=== PATIENT | female | born 1945 | race Caucasian/White ===

== ENCOUNTER 2018-03-22 11:11 | Observation (INO) | payer MEDICARE, OTHER ==
[~2018-03-22] VITALS: Ht 160 cm; Wt 67.6 kg
[2018-03-22 11:14] VITALS: BP 62/37
[2018-03-22] MEDS ORDERED: PLAVIX 75 MG TA75 M1 PO (11:27)
[2018-03-22] MEDS ORDERED: LISINOPRIL10 MG PO (11:28)
[2018-03-22] MEDS ORDERED: NEURONTIN 300300 M1 PO (11:28)
[2018-03-22] MEDS ORDERED: LIPITOR40 MG PO (11:29)
[2018-03-22] MEDS ORDERED: EPITOL200 MG PO (11:29)
[2018-03-22] MEDS ORDERED: SERTRALINE HCL50 MG PO (11:29)
[2018-03-22] MEDS ORDERED: HYDROCHLOROTH12.5 M1 PO (11:29)
[2018-03-22] MEDS ORDERED: STIOLTO RESPIMAT4 GM INH (11:30)
[2018-03-22] MEDS ORDERED: PROAIR HFA8.5 GM INH (11:31)
[2018-03-22 11:37] LABS: ABSOLUTE BASOPHILS 0.1 thou/uL (0.0-0.2); ABSOLUTE EOSINOPHILS 0.1 thou/uL (0.0-0.7); ABSOLUTE LYMPHOCYTES 1.7 thou/uL (0.8-5.3); ABSOLUTE MONOCYTES 1.2 thou/uL (0.0-1.2); ABSOLUTE NEUTROPHILS 11.6 thou/uL (1.6-8.1); BASOPHILS 0.6 %; EOSINOPHILS 0.3 %; HEMATOCRIT 32.6 % (37.0-47.0); HEMOGLOBIN 10.7 gm/dL (12.0-15.0); LYMPHOCYTES 11.4 %; MCH 29.8 pg (26.0-34.0); MCHC 32.7 g/dL (28.0-37.0); MCV 91.2 fL (80.0-100.0); MONOCYTES 8.1 %; NUCLEATED RBCS 0 /100WBC; PLATELET COUNT* 405 thou/uL (150-400); POLYS 79.6 %; RBC 3.57 mil/uL (4.20-5.00); RDW-CV 14.3 % (10.5-14.5); WBC 14.5 thou/uL (4.0-11.0)
[2018-03-22 11:45] LABS: CALCIUM 8.4 mg/dL (8.5-10.1); CREATININE 1.1 mg/dL (0.6-1.3); POTASSIUM 3.3 mmol/L (3.5-5.1)
[2018-03-22 11:50] LABS: ALBUMIN 3.2 g/dL (3.4-5.0); MAGNESIUM 1.7 mg/dL (1.8-2.4); TOTAL BILIRUBIN 0.2 mg/dL (<0.1-1.0); TOTAL PROTEIN 7.3 g/dL (6.4-8.2)
[2018-03-22 12:49] LABS: URINE BILIRUBIN NEGATIVE (Negative); URINE BLOOD NEGATIVE (Negative); URINE CLARITY CLEAR; URINE COLOR YELLOW; URINE GLUCOSE-RANDOM NEGATIVE (Negative); URINE KETONES NEGATIVE (Negative); URINE LEUKOCYTES-REFLEX NEGATIVE (Negative); URINE NITRITE-REFLEX NEGATIVE (Negative); URINE PROTEIN 1+ (Negative); URINE UROBILINOGEN 0.2 E.U./dl (0.2-1.0)
[2018-03-22 15:43] LABS: APTT 23.6 Seconds (25.0-31.3); PROTIME 10.1 Seconds (9.20-11.50)
[2018-03-22 17:05] VITALS: BP 166/78
[2018-03-22 17:15] VITALS: BP 143/57
[2018-03-22] MEDS ORDERED: SINEMET 25-1001 EAC1 PO (17:53)
--- NOTE | 2018-03-22 18:06 | EKG ---
[place] [address] ELECTROCARDIOGRAM REPORT Name: EMA DAVIS Room: [address] ADM IN .R.#: [id number] Admission: 03/22/18 Attend Phys: Patel Mistry MD Discharge: Date of : 41 Report #: [id number] THIS REPORT FOR: //name// [facility] ED Test Date: 2018-03-22 Test Time: 11:20:20 Pat Name: EMA DAVIS Department: Room: Gender: F Cowlman: SAEID : 1945 Requested By: Anila Ryan Order Number: [id number] MD: Jluis Mistry Measurements Intervals [place] Rate: 69 P: 49 FL: 268 QRS: 65 QRSD: 106 T: 61 QT: 436 QTc: 467 Interpretive Statements Sinus rhythm Prolonged [place] interval Abnormal inferior Q waves Borderline repol abnrm, anterolateral leads Baseline wander in lead(s) V1,V2,V3,V4,V5 No previous ECG available for comparison Electronically Signed On 03-22-2018 18:05:53 CDT by Jluis Mistry [email or web address] <ELECTRONICALLY SIGNED> By: Jluis Mistry MD, FACC 03/22/18 1805 1120 1120 Jluis Mistry MD, [facility] /EPI
[2018-03-22 19:45] VITALS: BP 125/52
[2018-03-23] VITALS (7 sets, daily range): BP systolic 108–158; BP diastolic 38–59
[2018-03-23 05:19] LABS: CREATININE 0.8 mg/dL (0.6-1.3); MAGNESIUM 1.7 mg/dL (1.8-2.4); POTASSIUM 3.9 mmol/L (3.5-5.1)
[2018-03-23 14:12] LABS: HEMATOCRIT 29.8 % (37.0-47.0); HEMOGLOBIN 9.8 gm/dL (12.0-15.0); MCH 29.9 pg (26.0-34.0); MCHC 32.8 g/dL (28.0-37.0); MCV 91.3 fL (80.0-100.0); MPV 7.3 fl. (7.2-11.1); RBC 3.26 mil/uL (4.20-5.00); RDW-CV 14.3 % (10.5-14.5); WBC 14.2 thou/uL (4.0-11.0)
[2018-03-23 14:20] LABS: CALCIUM 8.2 mg/dL (8.5-10.1); CREATININE 0.9 mg/dL (0.6-1.3); POTASSIUM 3.7 mmol/L (3.5-5.1)
[2018-03-23 14:25] LABS: MAGNESIUM 1.7 mg/dL (1.8-2.4); TOTAL BILIRUBIN 0.2 mg/dL (<0.1-1.0)
--- NOTE | 2018-03-23 15:13 | 2DMMODE ---
[place] [address] 2 D/M-MODE ECHOCARDIOGRAM Name: EMA DAVIS WILMER Room: [address] MEsteban#: [id number] Admission: 03/22/18 Attend Phys: Patel Mistry, Discharge: Date of : 41 Date of Service: 03/23/18 1513 Report #: [id number] THIS REPORT FOR: //name// APPROVED REPORT Study performed: 03/23/2018 11:17:58 EXAM: Comprehensive 2D, Doppler, and color-flow Echocardiogram Patient Location: In-Patient Room #: 221 Status: routine BSA: 1.70 HR: 71 bpm BP: 112/45 mmHg Rhythm: NSR Other Information Study Quality: Good Indications Arrhythmia 2D Dimensions LVEF(%): 77.93 (>50%) IVSd: 10.31 (7-11mm) LVOT Diam: 18.82 (18-24mm) LVDd: 33.74 mm PWd: 9.30 (7-11mm) Ascending Ao: 31.79 (22-36mm) LVDs: 18.39 (25-40mm) Aortic Root: 30.19 mm Wade's LVEF: 77.93 % Volumes Left Atrial Volume (Systole) LA ESV Index: 23.20 mL/m2 Aortic Valve AoV Peak Shaquille.: 1.45 m/s AO Peak Gr.: 8.46 mmHg LVOT Max P.02 mmHg AO Mean Gr.: 4.78 mmHg LVOT Mean P.28 mmHg LVOT Max V: 1.32 m/s AO V2 VTI: 29.17 cm LVOT Mean V: 0.82 m/s NONA (VTI): 2.91 cm2 LVOT V1 VTI: 30.55 cm Mitral Valve E/A Ratio: 1.08 [place] [address] 2 D/M-MODE ECHOCARDIOGRAM Name: EMA DAVIS [facility] Room: [address] M.R.#: [id number] Admission: 03/22/18 Attend Phys: Patel Mistry, Discharge: Date of : 41 Date of Service: 03/23/18 1513 Report #: [id number] MV Decel. Time: 184.40 ms MV E Max Shaquille.: 1.09 m/s MV PHT: 53.48 ms MVA (PHT): 4.11 cm2 TDI E/Lateral E': 9.91 E/Medial E': 10.90 Medial E' Shaquille.: 0.10 m/s Lateral E' Shaquille.: 0.11 m/s Pulmonary Valve PV Peak Shaquille.: 1.00 m/s PV Peak Gr.: 4.02 mmHg Tricuspid Valve RAP Estimate: 5.00 mmHg TR Peak Gr.: 21.57 mmHg RVSP: 26.57 mmHg PA Pressure: 26.57 mmHg Left Ventricle The left ventricle is normal size. There is normal LV segmental wall motion. There is normal left ventricular wall thickness. Left ventricular systolic function is normal. The left ventricular ejection fraction is within the normal range. LVEF is 60-65%. The left ventricular diastolic function is normal. Right Ventricle The right ventricle is normal size. The right ventricular systolic function is normal. Atria The left atrium size is normal. The right atrium size is normal. Aortic Valve Mild aortic valve sclerosis. No aortic regurgitation is present. There is no aortic valvular stenosis. Mitral Valve The mitral valve is normal in structure. Mild mitral regurgitation. No evidence of mitral valve stenosis. Tricuspid Valve The tricuspid valve is normal in structure. Mild tricuspid regurgitation. No pulmonary hypertension[place] [address] 2 D/M-MODE ECHOCARDIOGRAM Name: EMA DAVIS [facility] Room: [address] M.R.#: [id number] Admission: 03/22/18 Attend Phys: Patel Mistry, Discharge: Date of : 41 Date of Service: 03/23/18 1513 Report #: [id number] The pulmonary valve is normal in structure. There is no pulmonic valvular regurgitation. Great Vessels The aortic root is normal in size. IVC is normal in size and collapses with >50% inspiration Pericardium There is no pericardial effusion. <Conclusion> The left ventricle is normal size. There is normal left ventricular wall thickness. Left ventricular systolic function is normal. The left ventricular ejection fraction is within the normal range. LVEF is 60-65%. The right ventricle is normal size. The left atrium size is normal. Mild aortic valve sclerosis. No aortic regurgitation is present. There is no aortic valvular stenosis. The mitral valve is normal in structure. Mild mitral regurgitation. The tricuspid valve is normal in structure. IVC is normal in size and collapses with >50% inspiration There is no pericardial effusion. There is normal LV segmental wall motion. <ELECTRONICALLY SIGNED> By: Pablo Gomes MD, FACC 03/23/18 1513 1513 1513 Pablo Gomes MD, FACC /INF
--- NOTE | 2018-03-24 12:17 | CON ---
[address] [address] CONSULTATION Name: EMA DAVIS WILMER Room: [address] Giovany Izaguirre#: [id number] Admission: 03/22/18 Attend Phys: Patel Mistry MD Discharge: 03/23/18 Date of : 41 Report #: [id number] THIS REPORT FOR: //name// CC: Patel Tam DATE OF SERVICE: 03/23/2018 HISTORY OF PRESENT ILLNESS: This is a 72-year-old female patient who was evaluated by me for 2 episodes of passing out. She indicates she was in the toilet and she passed out. She did not hit her head or any portion of her body as I understand, but she may have had confusion after the spell. When she came in, looks like her blood pressure was 62/37. Her blood pressure continued to be low. She gives a history that in December, she had a stroke. She was in [place]. They did the workup. She had presented with right-sided numbness. Apparently, the workup was unremarkable. They put the patient on aspirin, statin and readjusted her antihypertensive. She did not check her blood pressure and she does not know whether the blood pressure intermittently has become worse. REVIEW OF SYSTEMS: Indicate that about a year ago, she had an episode where she had some pain on the left side of the face. She went to a neurologist and looks like they put her on gabapentin and Tegretol. I do not have any of that history. She has taken that around that time, she also fell and hit her head. According to her that was a mechanical fall. She lost the taste and everything started tasting sugary, but then she became better. That feeling has come back, but that is going on for a few weeks. REVIEW OF SYSTEMS: I carried out 14-point review of system. She is not complaining of any new eye, ENT, respiratory, , musculoskeletal, constitutional, dermatological, hematological, psychiatric, throat, allergic symptom associated with present symptomatology except as described above. PAST MEDICAL HISTORY: Positive for stroke, but I do not have any of his records. FAMILY HISTORY: Negative for any early age stroke. SOCIAL HISTORY: She smokes. PHYSICAL EXAMINATION: Indicates she is alert, responsive, able to follow simple and complex command. Her speech, concentration, fund of knowledge and memory is at her baseline. Cranial nerve examination 2-12 looks unremarkable. She has symmetrical strength, sensation, reflexes and tone in all 4 extremities. There is no cerebellar sign. There is no carotid bruit. There is no papilledema. She has no thyroid mass. Her hearing and vision is adequate[place] [address] CONSULTATION Name: EMA DAVIS WILMER Room: [address] Giovany M.RMarvel#: [id number] Admission: 03/22/18 Attend Phys: Patel Mistry MD Discharge: 03/23/18 Date of : 41 Report #: [id number] cerebellar sign. She is reasonably well-developed individual. Her cardiac examination is unremarkable. Her pulses are palpable. She has no edema, cyanosis or jaundice. No respiratory difficulty or rhonchi was noticed on either side. Her blood pressure has come up, it is 158/59, and respiration is 18, pulse is 74, temperature is 97.8. LABORATORY DATA: For some reason, her white count was 14.5 and her sodium was 132, calcium was 8, and magnesium was 1.7. She did have an MRI, which is basically unremarkable. IMPRESSION: It is unlikely that there is any neurological etiology for the patient's symptoms. It looks like she has multiple metabolic abnormalities, which need to be addressed. She appears to be hypothyroid, hypocalcemic, hyponatremic, hypomagnesemic and when she came in, her blood pressure was very low. Therefore, I will suggest workup and management of her systemic and cardiac conditions, which I will defer to you. Just to make sure she is not having any spell and because she has it multiple times, I will do an MRA and EEG, but I do not expect to find anything there. I will suggest continue to workup and manage the systemic including cardiac etiology for the patient's symptoms. RECOMMENDATION: I suspect the patient's symptoms were non-neurological and we will suggest further workup and management of those etiologies, especially as summarized above. I will do a couple of other tests to exclude any neurological etiology, but do not suspect any. I will defer the further evaluation and management of non-neurological issues to the hospitalist or any other party plan sales consultant they want to consult. <ELECTRONICALLY SIGNED> By: Connor Vidal MD 03/24/18 1217 1315 1426Connor Vidal MD /nt
--- NOTE | 2018-03-24 12:17 | EEG ---
[address] [address] EEG STUDY REPORT Name: EMA DAVIS Room: [address] M.RMarvel#: [id number] Admission: 03/22/18 Attend Phys: Patel Mistry MD Discharge: 03/23/18 Date of : 41 Report #: [id number] THIS REPORT FOR: //name// CC: Patel Campbell Yonatan DATE OF SERVICE: 03/23/2018 This patient is being evaluated for an episode of syncope. EEG was done to evaluate the patient further. Background activity in this patient's EEG is about 9-10 Hz and 30 microvolts. It is a symmetrical activity. Photic stimulation was unremarkable. The patient went to sleep that is associated with bilaterally symmetrical sleep spindle and vertex sharp waves. Throughout the record, no active epileptiform activity was noted. IMPRESSION: This patient's electroencephalogram is within normal limit. Thank you very much for this referral. <ELECTRONICALLY SIGNED> By: Connor Vidal MD 03/24/18 1217 1835 1842Penedina Vidal MD /nt
== END 2018-03-23 18:34 | disposition home or self-care (01) ==
LOC: M.ERS 11:11 → M.2W 14:43 → M.TBA-ER 14:43 → M.2W 14:43
PROVIDERS: Personal Emergency Response Attendant; Psychiatry & Neurology Neuromuscular Medicine; ADMIT Internal Medicine
DX: I95.1 Orthostatic hypotension (principal); R19.7 Diarrhea, unspecified; E86.9 Volume depletion, unspecified; E87.1 Hypo-osmolality and hyponatremia; E87.6 Hypokalemia; I10 Essential (primary) hypertension; E78.5 Hyperlipidemia, unspecified; J44.9 Chronic obstructive pulmonary disease, unspecified; E03.9 Hypothyroidism, unspecified; F17.210 Nicotine dependence, cigarettes, uncomplicated; Z86.73 Personal history of transient ischemic attack (TIA), and cerebral infarction without residual deficits

== ENCOUNTER 2018-03-27 17:33 | Emergency (ER) | payer MEDICARE, BC ==
[~2018-03-27] VITALS: Ht 160 cm; Wt 64.9 kg
[~2018-03-27 17:33] MED LIST: EPITOL200 MG PO; HYDROCHLOROTH12.5 M1 PO; LIPITOR40 MG PO; LISINOPRIL10 MG PO; NEURONTIN 300300 M1 PO; PLAVIX 75 MG TA75 M1 PO; PROAIR HFA8.5 GM INH; SERTRALINE HCL50 MG PO; SINEMET 25-1001 EAC1 PO; STIOLTO RESPIMAT4 GM INH
[2018-03-27 18:24] LABS: ABSOLUTE BASOPHILS 0.1 thou/uL (0.0-0.2); ABSOLUTE LYMPHOCYTES 1.5 thou/uL (0.8-5.3); ABSOLUTE MONOCYTES 1.2 thou/uL (0.0-1.2); ABSOLUTE NEUTROPHILS 10.9 thou/uL (1.6-8.1); BASOPHILS 0.7 %; EOSINOPHILS 0.3 %; HEMATOCRIT 30.2 % (37.0-47.0); HEMOGLOBIN 9.9 gm/dL (12.0-15.0); MCH 29.3 pg (26.0-34.0); MCHC 32.8 g/dL (28.0-37.0); MCV 89.3 fL (80.0-100.0); MONOCYTES 9.1 %; MPV 7.1 fl. (7.2-11.1); NUCLEATED RBCS 0 /100WBC; PLATELET COUNT* 399 thou/uL (150-400); POLYS 78.9 %; RBC 3.38 mil/uL (4.20-5.00); RDW-CV 14.3 % (10.5-14.5); WBC 13.8 thou/uL (4.0-11.0)
[2018-03-27 18:27] LABS: CALCIUM 8.8 mg/dL (8.5-10.1); CREATININE 0.8 mg/dL (0.6-1.3); POTASSIUM 3.5 mmol/L (3.5-5.1)
[2018-03-27 18:31] LABS: ALBUMIN 3.2 g/dL (3.4-5.0); MAGNESIUM 1.4 mg/dL (1.8-2.4); TOTAL BILIRUBIN 0.3 mg/dL (<0.1-1.0); TOTAL PROTEIN 7.5 g/dL (6.4-8.2)
[2018-03-27 19:38] LABS: URINE BILIRUBIN NEGATIVE (Negative); URINE BLOOD TRACE (Negative); URINE CLARITY CLEAR; URINE COLOR YELLOW; URINE GLUCOSE-RANDOM NEGATIVE (Negative); URINE KETONES TRACE (Negative); URINE LEUKOCYTES-REFLEX NEGATIVE (Negative); URINE NITRITE-REFLEX NEGATIVE (Negative); URINE PROTEIN NEGATIVE (Negative); URINE SPECIFIC GRAVITY <= 1.005 (1.005-1.030); URINE UROBILINOGEN 0.2 E.U./dl (0.2-1.0)
[2018-03-27 19:56] LABS: CALCIUM 8.1 mg/dL (8.5-10.1); CREATININE 0.8 mg/dL (0.6-1.3); POTASSIUM 3.3 mmol/L (3.5-5.1)
[2018-03-27] MEDS ORDERED: ALBUTEROL2.5 MG/3 M INH (19:56)
[2018-03-27] MEDS ORDERED: PREDNISONE 20 M20 M1 PO (19:56)
[2018-03-27] MEDS ORDERED: ZPAK PO (19:56)
[2018-03-27 20:10] VITALS: BP 132/56
--- NOTE | 2018-03-28 17:17 | EKG ---
[place] [address] ELECTROCARDIOGRAM REPORT Name: EMA DAVIS Room: [facility]#: [id number] Admission: 03/27/18 Attend Phys: Discharge: 03/27/18 Date of : 41 Report #: [id number] THIS REPORT FOR: //name// [facility] ED Test Date: 2018-03-27 Test Time: 17:44:10 Pat Name: EMA DAVIS Department: Room: Gender: F Director Money: Keila MOORE : 1945 Requested By: Anila Ryan Order Number: [id number] Katie MD: Jluis Mistry Measurements Intervals [place] Rate: 96 P: 81 NH: 225 QRS: 77 QRSD: 98 T: 61 QT: 348 QTc: 440 Interpretive Statements Sinus rhythm Prolonged [place] interval Compared to ECG 03/22/2018 11:20:20 Inferior Q waves no longer present Q waves no longer present Electronically Signed On 03-28-2018 17:17:21 CDT by Jluis Mistry [email or web address] <ELECTRONICALLY SIGNED> By: Jluis Mistry MD, [facility] 03/28/18 1717 1744 174 Jluis Mistry MD, [facility] /EPI
== END 2018-03-27 20:11 | disposition home or self-care (01) ==
LOC: M.ERS 17:33
PROVIDERS: Family Medicine; Personal Emergency Response Attendant
DX: J44.1 Chronic obstructive pulmonary disease with (acute) exacerbation (principal); E87.1 Hypo-osmolality and hyponatremia; I10 Essential (primary) hypertension; F17.210 Nicotine dependence, cigarettes, uncomplicated; Z86.73 Personal history of transient ischemic attack (TIA), and cerebral infarction without residual deficits

== ENCOUNTER 2020-08-10 12:40 | Emergency (ER) | payer MEDICARE, BC ==
[~2020-08-10] VITALS: Ht 160 cm; Wt 69.0 kg
[~2020-08-10 12:40] MED LIST changes: +ALBUTEROL2.5 MG/3 M INH; +PREDNISONE 20 M20 M1 PO; +ZPAK PO
[2020-08-10 13:13] LABS: ABSOLUTE BASOPHILS 0.1 thou/uL (0.0-0.2); ABSOLUTE LYMPHOCYTES 0.9 thou/uL (0.8-5.3); ABSOLUTE MONOCYTES 1.2 thou/uL (0.0-1.2); ABSOLUTE NEUTROPHILS 4.2 thou/uL (1.6-8.1); BASOPHILS 1.1 %; EOSINOPHILS 0.1 %; HEMATOCRIT 32.3 % (37.0-47.0); HEMOGLOBIN 10.9 gm/dL (12.0-15.0); LYMPHOCYTES 14.1 %; MCH 31.2 pg (26.0-34.0); MCHC 33.7 g/dL (28.0-37.0); MCV 92.6 fL (80.0-100.0); MONOCYTES 18.4 %; MPV 6.9 fl. (7.2-11.1); NUCLEATED RBCS 0 /100WBC; PLATELET COUNT* 283 thou/uL (150-400); POLYS 66.3 %; RBC 3.48 mil/uL (4.20-5.00); RDW-CV 13.9 % (10.5-14.5); WBC 6.4 thou/uL (4.0-11.0)
[2020-08-10 13:23] LABS: CREATININE 0.9 mg/dL (0.6-1.3); POTASSIUM 3.9 mmol/L (3.5-5.1)
[2020-08-10 13:28] LABS: ALBUMIN 3.3 g/dL (3.4-5.0); TOTAL BILIRUBIN 0.3 mg/dL (<0.1-1.0); TOTAL PROTEIN 7.5 g/dL (6.4-8.2)
[2020-08-10 13:29] LABS: URINE BILIRUBIN NEGATIVE (Negative); URINE BLOOD 1+ (Negative); URINE CLARITY CLEAR; URINE COLOR YELLOW; URINE GLUCOSE-RANDOM NEGATIVE (Negative); URINE KETONES NEGATIVE (Negative); URINE LEUKOCYTES-REFLEX TRACE (Negative); URINE PROTEIN NEGATIVE (Negative); URINE SPECIFIC GRAVITY 1.015 (1.005-1.030); URINE UROBILINOGEN 0.2 E.U./dl (0.2-1.0)
[2020-08-10 13:30] LABS: URINE NITRITE-REFLEX POSITIVE (Negative)
[2020-08-10 13:41] LABS: SQUAMOUS >10 Many /LPF (0-3)
[2020-08-10 13:42] LABS: BACTERIA-REFLEX >30 Many /HPF (None Seen); CASTS None Seen /LPF (None Seen); CRYSTALS None Seen /LPF (None Seen); MUCUS 0-3 Light strn/LPF (None Seen); URINE RBC 3-10 Few /HPF (0-2); URINE WBC-REFLEX 6-15 Few /HPF (0-5)
[2020-08-10] MEDS ORDERED: PROAIR HFA8.5 GM INH ×2 (14:15→14:23)
[2020-08-10] MEDS ORDERED: APAP W/CODEINE1 TA2 PO (14:15)
[2020-08-10] MEDS ORDERED: AUGMENTIN 875-1 EACH PO ×2 (14:15→14:23)
[2020-08-10] MEDS ORDERED: PREDNISONE 20 M20 MG PO (14:15)
[2020-08-10] MEDS ORDERED: ONDANSETRON HCL4 M2 PO ×2 (14:15→14:23)
[2020-08-10 14:36] VITALS: BP 124/74
--- NOTE | 2020-08-11 15:10 | EKG ---
[place] [address] ELECTROCARDIOGRAM REPORT Name: IANCarmineEMA CRESPO WILMER Room: [facility]#: [id number] Admission: 08/10/20 Attend Phys: Discharge: 08/10/20 Date of : 41 Date of Service: 08/10/20 1312 Report #: [id number] THIS REPORT FOR: //name// [facility] ED Test Date: 2020-08-10 Test Time: 13:12:41 Pat Name: EMA DAVIS Department: Room: Gender: Vp Data: ROBSON : 1945 Requested By: Juana Bucio Order Number: [id number] : Pablo Gomes Measurements Intervals [place] Rate: 75 P: 70 WA: 222 QRS: 74 QRSD: 98 T: 74 QT: 403 QTc: 451 Interpretive Statements Sinus rhythm Prolonged [place] interval Compared to ECG 03/27/2018 17:44:10 No significant changes Electronically Signed On 08-11-2020 15:09:48 PENCIL INSPECTOR by Pablo Gomes [email or web address] <ELECTRONICALLY SIGNED> By: Pablo Gomes MD, [facility] 08/11/20 1509 1312 131 Pablo Gomes MD, [facility] /EPI
== END 2020-08-10 14:45 | disposition home or self-care (01) ==
LOC: M.ERS 12:40
PROVIDERS: Physician Assistant
DX: U07.1 COVID-19 (principal); N39.0 Urinary tract infection, site not specified; I10 Essential (primary) hypertension; J44.9 Chronic obstructive pulmonary disease, unspecified; F17.210 Nicotine dependence, cigarettes, uncomplicated; Z86.73 Personal history of transient ischemic attack (TIA), and cerebral infarction without residual deficits; Z90.49 Acquired absence of other specified parts of digestive tract; Z90.710 Acquired absence of both cervix and uterus

== ENCOUNTER 2020-08-11 02:27 | Inpatient (IN) | payer MEDICARE, BC ==
[~2020-08-11] VITALS: Ht 160 cm; Wt 73.0 kg
[~2020-08-11 02:27] MED LIST changes: +APAP W/CODEINE1 TA2 PO; +AUGMENTIN 875-1 EACH PO; +ONDANSETRON HCL4 M2 PO; +PREDNISONE 20 M20 MG PO
[2020-08-11 02:38] VITALS: BP 129/48
[2020-08-11 03:32] LABS: ABSOLUTE BASOPHILS 0.1 thou/uL (0.0-0.2); ABSOLUTE MONOCYTES 1.2 thou/uL (0.0-1.2); ABSOLUTE NEUTROPHILS 5.9 thou/uL (1.6-8.1); HEMATOCRIT 32.1 % (37.0-47.0); HEMOGLOBIN 10.8 gm/dL (12.0-15.0); MCH 31.6 pg (26.0-34.0); MCHC 33.7 g/dL (28.0-37.0); MCV 93.5 fL (80.0-100.0); MONOCYTES 13.2 %; MPV 8.4 fl. (7.2-11.1); NUCLEATED RBCS 0 /100WBC; PLATELET COUNT* 256 thou/uL (150-400); POLYS 63.8 %; RBC 3.43 mil/uL (4.20-5.00); RDW-CV 13.7 % (10.5-14.5); WBC 9.3 thou/uL (4.0-11.0)
[2020-08-11 03:34] LABS: BE -2.4 mmol/L (-2 to +3); PCO2 37.1 mmHg (35.0-45.0); PO2 71.3 mmHg (75.0-100.0); pH 7.392 (7.340-7.450)
[2020-08-11 03:43] LABS: CALCIUM 7.8 mg/dL (8.5-10.1); CREATININE 1.1 mg/dL (0.6-1.3); POTASSIUM 3.7 mmol/L (3.5-5.1)
[2020-08-11 03:47] LABS: ALBUMIN 3.2 g/dL (3.4-5.0); MAGNESIUM 1.8 mg/dL (1.8-2.4); TOTAL BILIRUBIN 0.3 mg/dL (<0.1-1.0); TOTAL PROTEIN 7.1 g/dL (6.4-8.2)
[2020-08-11 08:45] VITALS: BP 128/76
[2020-08-11 12:45] VITALS: BP 114/39
--- NOTE | 2020-08-11 15:12 | EKG ---
[place] [address] ELECTROCARDIOGRAM REPORT Name: SUSANEMA WILMER Room: [place] [address] ADM IN ..#: [id number] Admission: 08/11/20 Attend Phys: Ranjeet Oquendo Discharge: Date of : 41 Date of Service: 08/11/20 0237 Report #: [id number] THIS REPORT FOR: //name// [facility] ED Test Date: 2020-08-11 Test Time: 02:37:28 Pat Name: EMA DAVIS Department: Room: [place] [address] Gender: F Communications Tower Climber: [place] : 1945 Requested By: Anila Ryan Order Number: [id number] Katie MD: Pablo Gomes Measurements Intervals [place] Rate: 67 P: 102 NE: 238 QRS: 70 QRSD: 100 T: 78 QT: 413 QTc: 436 Interpretive Statements Sinus rhythm Prolonged [place] interval RSR' in V1 or V2, probably normal variant Compared to ECG 08/10/2020 13:12:41 RSR' in V1 or V2 now present Electronically Signed On 08-11-2020 15:12:38 ROLLING MILL OPERATOR by Pablo Gomes [email or web address] <ELECTRONICALLY SIGNED> By: Pablo Gomes MD, FACC 08/11/20 1512 0237 0237 Pablo Gomes MD, FACC /EPI
[2020-08-11 16:55] VITALS: BP 136/53
[2020-08-11 17:10] VITALS: BP 114/52
[2020-08-11 20:45] VITALS: BP 110/56; BP 139/77
[2020-08-12] VITALS (8 sets, daily range): BP systolic 108–165; BP diastolic 47–85
[2020-08-12 07:05] LABS: ABSOLUTE LYMPHOCYTES 2.1 thou/uL (0.8-5.3); ABSOLUTE MONOCYTES 0.6 thou/uL (0.0-1.2); ABSOLUTE NEUTROPHILS 3.4 thou/uL (1.6-8.1); BASOPHILS 0.6 %; EOSINOPHILS 0.2 %; HEMATOCRIT 30.9 % (37.0-47.0); HEMOGLOBIN 10.3 gm/dL (12.0-15.0); MCH 31.2 pg (26.0-34.0); MCHC 33.2 g/dL (28.0-37.0); MCV 93.8 fL (80.0-100.0); MONOCYTES 9.6 %; MPV 7.7 fl. (7.2-11.1); NUCLEATED RBCS 0 /100WBC; PLATELET COUNT* 251 thou/uL (150-400); POLYS 55.6 %; RDW-CV 13.9 % (10.5-14.5); WBC 6.2 thou/uL (4.0-11.0)
[2020-08-12 07:31] LABS: CALCIUM 8.1 mg/dL (8.5-10.1); CREATININE 0.9 mg/dL (0.6-1.3); POTASSIUM 3.5 mmol/L (3.5-5.1)
[2020-08-12 10:33] LABS: ALBUMIN 2.9 g/dL (3.4-5.0); DIRECT BILIRUBIN 0.1 mg/dL (<0.1-0.3); TOTAL BILIRUBIN 0.1 mg/dL (<0.1-1.0); TOTAL PROTEIN 6.8 g/dL (6.4-8.2)
[2020-08-13 00:54] VITALS: BP 124/55
[2020-08-13 05:00] VITALS: BP 120/53
[2020-08-13 06:59] LABS: ABSOLUTE LYMPHOCYTES 1.9 thou/uL (0.8-5.3); ABSOLUTE MONOCYTES 0.6 thou/uL (0.0-1.2); ABSOLUTE NEUTROPHILS 3.2 thou/uL (1.6-8.1); BASOPHILS 0.4 %; EOSINOPHILS 0.1 %; HEMATOCRIT 30.1 % (37.0-47.0); HEMOGLOBIN 10.2 gm/dL (12.0-15.0); LYMPHOCYTES 32.9 %; MCH 31.5 pg (26.0-34.0); MCHC 33.9 g/dL (28.0-37.0); MCV 92.8 fL (80.0-100.0); MONOCYTES 9.7 %; MPV 8.2 fl. (7.2-11.1); NUCLEATED RBCS 0 /100WBC; PLATELET COUNT* 251 thou/uL (150-400); POLYS 56.9 %; RBC 3.24 mil/uL (4.20-5.00); WBC 5.7 thou/uL (4.0-11.0)
[2020-08-13 07:21] LABS: CALCIUM 7.7 mg/dL (8.5-10.1); CREATININE 0.7 mg/dL (0.6-1.3); POTASSIUM 3.1 mmol/L (3.5-5.1); TOTAL BILIRUBIN 0.1 mg/dL (<0.1-1.0); TOTAL PROTEIN 7.2 g/dL (6.4-8.2)
[2020-08-13 08:00] VITALS: BP 139/76
[2020-08-13] MEDS ORDERED: DEXAMETHASONE1 MG PO (11:56)
[2020-08-13] MEDS ORDERED: DOXYCYCLINE 10100 MG PO (11:56)
[2020-08-13] MEDS ORDERED: PROTONIX40 M2 PO (11:56)
[2020-08-13 12:26] VITALS: BP 139/76
== END 2020-08-13 13:15 | disposition home or self-care (01) | DRG 177 ==
LOC: M.ERS 02:27 → M.ORTHSURG 04:31 → M.TBA-ER 04:31 → M.ORTHSURG 17:11
PROVIDERS: Internal Medicine; Personal Emergency Response Attendant; ADMIT Internal Medicine; ATTEND Internal Medicine
DX: U07.1 COVID-19 (principal); J12.89 Other viral pneumonia; K85.90 Acute pancreatitis without necrosis or infection, unspecified; E87.1 Hypo-osmolality and hyponatremia; R65.10 Systemic inflammatory response syndrome (SIRS) of non-infectious origin without acute organ dysfunction; J44.0 Chronic obstructive pulmonary disease with (acute) lower respiratory infection; J96.10 Chronic respiratory failure, unspecified whether with hypoxia or hypercapnia; I10 Essential (primary) hypertension; D64.9 Anemia, unspecified; Z86.73 Personal history of transient ischemic attack (TIA), and cerebral infarction without residual deficits; Z90.710 Acquired absence of both cervix and uterus; Z90.49 Acquired absence of other specified parts of digestive tract; Z79.899 Other long term (current) drug therapy; Z79.01 Long term (current) use of anticoagulants; Z87.891 Personal history of nicotine dependence

== ENCOUNTER 2020-08-20 10:53 | Emergency (ER) | payer MEDICARE, BC ==
[~2020-08-20] VITALS: Ht 162.6 cm; Wt 66.7 kg
[~2020-08-20 10:53] MED LIST changes: +DEXAMETHASONE1 MG PO; +DOXYCYCLINE 10100 MG PO; +PROTONIX40 M2 PO
[2020-08-20 11:37] LABS: HEMATOCRIT 33.8 % (37.0-47.0); HEMOGLOBIN 11.4 gm/dL (12.0-15.0); MCH 30.7 pg (26.0-34.0); MCHC 33.8 g/dL (28.0-37.0); MCV 90.9 fL (80.0-100.0); MPV 7.1 fl. (7.2-11.1); RBC 3.71 mil/uL (4.20-5.00); RDW-CV 13.9 % (10.5-14.5); WBC 8.9 thou/uL (4.0-11.0)
[2020-08-20 11:44] LABS: CALCIUM 8.1 mg/dL (8.5-10.1); POTASSIUM 3.7 mmol/L (3.5-5.1)
[2020-08-20 11:49] LABS: ALBUMIN 2.9 g/dL (3.4-5.0); TOTAL BILIRUBIN 0.3 mg/dL (<0.1-1.0); TOTAL PROTEIN 7.1 g/dL (6.4-8.2)
[2020-08-20] MEDS ORDERED: NORCO 5-325 TA1 EAC2 PO (13:47)
[2020-08-20] MEDS ORDERED: KEFLEX500 M1 PO (13:47)
[2020-08-20 14:06] VITALS: BP 133/62
--- NOTE | 2020-08-20 16:37 | EKG ---
[place] [address] ELECTROCARDIOGRAM REPORT Name: IANCarmineEMA CRESPO WILMER Room: [facility]#: [id number] Admission: 08/20/20 Attend Phys: Discharge: 08/20/20 Date of : 41 Date of Service: 08/20/20 1145 Report #: [id number] THIS REPORT FOR: //name// [facility] ED Test Date: 2020-08-20 Test Time: 11:45:35 Pat Name: EMA DAVIS Department: Room: Gender: F Charge Master Specialist: RAMBO : 1945 Requested By: Fred Scott Order Number: [id number] MD: Hayes Vital Measurements Intervals [place] Rate: 81 P: 50 MO: 211 QRS: 64 QRSD: 108 T: 79 QT: 401 QTc: 466 Interpretive Statements Sinus rhythm artifact noted Nonspecific repol abnormality, lateral leads Baseline wander in lead(s) V2,V4 Compared to ECG 08/11/2020 02:37: First degree AV block no longer present Electronically Signed On 08-20-2020 16:37:46 AIRCRAFT MAINTENANCE TECHNICIAN by Hayes Vital [email or web address] <ELECTRONICALLY SIGNED> By: Hayes Vital MD, [facility] 08/20/20 1637 1145 1145 Hayes Vital MD, [facility] /EPI
== END 2020-08-20 14:07 | disposition home or self-care (01) ==
LOC: M.ERS 10:53
PROVIDERS: Emergency Medicine Emergency Medical Services
DX: I80.8 Phlebitis and thrombophlebitis of other sites (principal); M79.632 Pain in left forearm; J44.9 Chronic obstructive pulmonary disease, unspecified; I10 Essential (primary) hypertension; F17.210 Nicotine dependence, cigarettes, uncomplicated; Z90.710 Acquired absence of both cervix and uterus; Z90.49 Acquired absence of other specified parts of digestive tract; Z86.73 Personal history of transient ischemic attack (TIA), and cerebral infarction without residual deficits

== ENCOUNTER 2021-03-26 20:16 | Inpatient (IN) | payer MEDICARE, BC ==
[~2021-03-26] VITALS: Ht 162.6 cm; Wt 68.0 kg
[~2021-03-26 20:16] MED LIST changes: +KEFLEX500 M1 PO; +NORCO 5-325 TA1 EAC2 PO
[2021-03-26 20:20] VITALS: BP 102/42
[2021-03-26 21:45] LABS: CALCIUM 8.9 mg/dL (8.5-10.1); CREATININE 1.3 mg/dL (0.6-1.3); POTASSIUM 3.5 mmol/L (3.5-5.1)
[2021-03-26 21:49] LABS: ALBUMIN 3.7 g/dL (3.4-5.0); MAGNESIUM 1.8 mg/dL (1.8-2.4); TOTAL BILIRUBIN 0.5 mg/dL (<0.1-1.0); TOTAL PROTEIN 8.1 g/dL (6.4-8.2)
[2021-03-26 22:10] LABS: HEMATOCRIT 42.2 % (37.0-47.0); HEMOGLOBIN 13.7 gm/dL (12.0-15.0); MCH 32.4 pg (26.0-34.0); MCHC 32.5 g/dL (28.0-37.0); MCV 99.5 fL (80.0-100.0); MPV 7.4 fl. (7.2-11.1); NUCLEATED RBCS 0 /100WBC; PLATELET COUNT* 375 thou/uL (150-400); RBC 4.24 mil/uL (4.20-5.00); RDW-CV 14.5 % (10.5-14.5); WBC 21.3 thou/uL (4.0-11.0)
[2021-03-26 22:42] LABS: ABSOLUTE LYMPHOCYTES 2.8 thou/uL (0.8-5.3); ABSOLUTE MONOCYTES 1.1 thou/uL (0.0-1.2); ABSOLUTE NEUTROPHILS 17.5 thou/uL (1.6-8.1); PLATELET ESTIMATE ADEQUATE
[2021-03-26] MEDS ORDERED: NEURONTIN 300M300 M2 PO (23:20)
[2021-03-26] MEDS ORDERED: AMITRIPTYLINE H10 M1 PO (23:24)
[2021-03-26] MEDS ORDERED: AMLODIPINE BESY10 MG PO (23:25)
[2021-03-26] MEDS ORDERED: BIOTIN1 M1 PO (23:26)
[2021-03-26] MEDS ORDERED: ZYRTEC10 M5 PO (23:28)
[2021-03-26] MEDS ORDERED: VITAMIN D3125 MC2 PO (23:28)
[2021-03-26] MEDS ORDERED: SLOW FE142 MG PO (23:32)
[2021-03-26] MEDS ORDERED: LEVO-T50 MCG PO (23:33)
[2021-03-26] MEDS ORDERED: MIRAPEX0.5 MG PO (23:34)
[2021-03-26] MEDS ORDERED: SODIUM CHLORIDE1 G2 PO (23:36)
--- NOTE | 2021-03-27 03:59 | NUR ---
PT INCONTINENT OF STOOL, LIQUID; PT WOKE CONFUSED; ASKED WHERE SHE WAS STATED "WHERE IS MY MOM" PT TEARFUL APOLOGIZING; PT PERICARE PROVIDED AND ASSISTED TO HOSPITAL BED' BED ALARM ON; CALL LIGHT WITHIN REACH; CLOSE TO THE NURSES STATION
[2021-03-27 04:00] VITALS: BP 113/51
--- NOTE | 2021-03-27 05:01 | NUR ---
PT WOKE DISTRESSED, BED ALRM GOING OFF; PT ATTEMPTING TO GET OUT OF BED; ASSISTED TO THE BATHROOM, PT UNSTEADY GAIT; IV PULLED OUT PER PT; PT TEARFUL ASKING FOR HER MOTHER AND BROTHER; NURSE REASSURED AND REDIRECTED PLACED BACK IN BED; CALL LIGHT WITHIN REACH, BED ALARM IN PLACE; DOOR REMAINS OPEN TO PTS ROOM TO KEEP SAFE, NEXT TO THE NURSES STATION
--- NOTE | 2021-03-27 06:49 | NUR ---
P T DAUGHTER CALLED RECEIVED UPDATE ASHOK [phone]; HARMAN SMITH [phone]
[2021-03-27 07:45] VITALS: BP 107/46
[2021-03-27 12:30] VITALS: BP 98/54
--- NOTE | 2021-03-27 15:10 | NUR ---
cm spk with pt and her granddtr, at bedside. pt lives with her dtr. pt has no dmes. pt is typically active and independent with cares. pt has no dmes. pt stated she was d/c from [facility] a day or two ago and was set up with that was supposed to start today. pt doesnt recall who was set up. cm contact [facility], for obvious reason, and was told pt was not on srvc with them. cm to cont to follow.
--- NOTE | 2021-03-27 15:13 | EKG ---
[place] [address] ELECTROCARDIOGRAM REPORT Name: EMA DAVIS Room: [place] [address] ADM IN .R.#: [id number] Admission: 03/26/21 Attend Phys: Álvaro Madsen, Discharge: Date of : 41 Date of Service: 03/26/212035 Report #: [id number] THIS REPORT FOR: //name// [facility] ED Test Date: 2021-03-26 Test Time: 20:36:59 Pat Name: EMA DAVIS Department: Room: [place] [address] Gender: F Key Operator: [place] : 1945 Requested By: Álvaro Madsen Order Number: [id number] Reading MD: Pablo Gomes Measurements Intervals [place] Rate: 77 P: 74 IA: 186 QRS: 64 QRSD: 97 T: 65 QT: 390 QTc: 442 Interpretive Statements Sinus rhythm Nondiagnostic inferior Q waves Minimal ST elevation, anterior leads Baseline wander in lead(s) V5 Compared to ECG 08/20/2020 11:45:35 Nondiagnostic inferior Q waves persist Minor nonspecific ST-T alterations persist Electronically Signed On 03-27-2021 15:13:08 CDT by Pablo Gomes [email or web address] <ELECTRONICALLY SIGNED> By: Pablo Gomes MD, [facility] 03/27/21 1513 35 35 Pablo Gomes MD, [facility] /EPI
--- NOTE | 2021-03-27 15:13 | EKG ---
[place] [address] ELECTROCARDIOGRAM REPORT Name: IANCarmineEMA CRESPO WILMER Room: [place] [address] ADM IN .R.#: [id number] Admission: 03/26/21 Attend Phys: Álvaro Madsen, Discharge: Date of : 41 Date of Service: 03/26/212036 Report #: [id number] THIS REPORT FOR: //name// [facility] ED Test Date: 2021-03-26 Test Time: 20:37:56 Pat Name: EMA DAVIS Department: Room: [place] [address] Gender: F Phlebotomy Coordinator: [place] : 1945 Requested By: Álvaro Madsen Order Number: [id number] Reading MD: Pablo Gomes Measurements Intervals [place] Rate: 77 P: 77 MA: 184 QRS: 56 QRSD: 101 T: 49 QT: 395 QTc: 448 Interpretive Statements Sinus rhythm Nondiagnostic inferior Q waves Minimal ST elevation, anterior leads Compared to ECG 03/26/2021 20:36:59 No significant changes Electronically Signed On 03-27-2021 15:13:31 CDT by Pablo Gomes [email or web address] <ELECTRONICALLY SIGNED> By: Pablo Gomes MD, [facility] 03/27/21 1513 36 36 Pablo Gomes MD, [facility] /EPI
[2021-03-27 17:00] VITALS: BP 98/54
--- NOTE | 2021-03-27 18:00 | NUR ---
ADMIT TO 210. ALERT AND AWARE, CONFUSION NOTED. ON ISOLATION FOR C-DIFF. STOOL SENT DOWN TO LAB EVENING OF 03-26-21. NS INFUSING LEFT AC AT 100MLS/HR. NO C/O PAIN. LUNGS DIMINISHED. HEART TONES REGULAR. +BS X 4 QUADS. PEDAL PULSES PRESENT. NO EDEMA NOTED. RESTING WITH EYES CLOSED. NO C/O. WILL CONTINUE TO MONITOR.
[2021-03-27 18:26] VITALS: BP 127/98
[2021-03-28 01:26] VITALS: BP 127/50
[2021-03-28 04:33] LABS: ABSOLUTE BASOPHILS 0.1 thou/uL (0.0-0.2); ABSOLUTE EOSINOPHILS 0.1 thou/uL (0.0-0.7); ABSOLUTE LYMPHOCYTES 2.8 thou/uL (0.8-5.3); ABSOLUTE MONOCYTES 0.8 thou/uL (0.0-1.2); BASOPHILS 0.9 %; EOSINOPHILS 1.4 %; LYMPHOCYTES 25.8 %; MCHC 34.9 g/dL (28.0-37.0); MONOCYTES 7.7 %; NUCLEATED RBCS 0 /100WBC; PLATELET COUNT* 310 thou/uL (150-400); POLYS 64.2 %; RBC 2.96 mil/uL (4.20-5.00); RDW-CV 13.9 % (10.5-14.5)
[2021-03-28 04:37] LABS: CALCIUM 7.5 mg/dL (8.5-10.1); CREATININE 0.7 mg/dL (0.6-1.3)
[2021-03-28 04:38] LABS: HEMOGLOBIN 9.8 gm/dL (12.0-15.0); MCV 94.5 fL (80.0-100.0)
--- NOTE | 2021-03-28 05:46 | NUR ---
PATIENT DROWSY AT BEGINNING OF SHIFT BUT ABLE TO TAKE NIGHT TIME MEDICATIONS. PT MORE ALERT/AWAKE MID-SHIFT. PT USES CALL LIGHT APPROPRIATELY FOR USE OF BEDPAN. PT WITH NO STOOLS BUT VOIDED 4 TIMES CLEAR YELLOW URINE. PT DENIES PAIN/NAUSEA. PT POSITIVE FOR C-DIFF AND PLACED IN SPECIAL CONTACT ISOLATION. PT IN SR ON JUNIOR PROGRAMMER. FREQUENTLY USED ITEMS AND CALL LIGHT WITHIN REACH. SIDERAILS UPX2 AND BED ALARM ON. WILL CONTINUE TO MONITOR.
[2021-03-28 06:15] VITALS: BP 127/56
--- NOTE | 2021-03-28 12:26 | NUR ---
FAMILY REQUESTED TRANSFER TO [facility]. I REACHED OUT TO [facility]. THEY HAVE NO BEDS BUT WILL INITIATE THE TRANSFER IF FAMILY REQUESTS. FAMILY UNDERSTOOD THE LACK OF BEDS. I EXPLAINED SHE COULD REQUEST MEDICAL RECORDS FOR HER NEUROLOGIST. FAMILY APPRECIATES CARE HERE AND WILL STAY HERE.
[2021-03-28 15:00] LABS: MAGNESIUM 1.3 mg/dL (1.8-2.4); PHOSPHORUS* 2.2 mg/dL (2.5-4.9)
[2021-03-29 01:09] VITALS: BP 12/56
--- NOTE | 2021-03-29 05:23 | NUR ---
ASSUMED CARE OF PATIENT AT 1930. AT APPROXIMATELY 0400 PATIENT STARTED SCREAMING OUT ABOUT PAIN IN HER EYE. UPON ASSESSMENT PATIENT FOUND HOLDING LEFT SIDE OF FACE. PATIENT SCREAMED FOR HER GABAPENTIN AND TEGRETOL. THESE ARE SCHEDULED MEDICATION AND ATTEMPTED TO EXPLAIN THIS TO PATIENT BUT PATIENT SCREAMED LOUDER FOR THEM. ADMINISTERED MEDICATION EARLY PER PATIENT REQUEST.
--- NOTE | 2021-03-29 07:33 | NUR ---
patient set up with home health [facility] and would like to continue with them. pt/nursing and possibly ot and nutrition.
[2021-03-29 08:30] VITALS: BP 148/63
[2021-03-29] MEDS ORDERED: VANCOMYCIN HCL125 MG PO (09:18)
[2021-03-29 11:49] LABS: HEMATOCRIT 31.5 % (37.0-47.0); HEMOGLOBIN 10.9 gm/dL (12.0-15.0); MCH 32.4 pg (26.0-34.0); MCHC 34.6 g/dL (28.0-37.0); MCV 93.8 fL (80.0-100.0); MPV 6.8 fl. (7.2-11.1); RBC 3.36 mil/uL (4.20-5.00); RDW-CV 13.8 % (10.5-14.5); WBC 12.3 thou/uL (4.0-11.0)
[2021-03-29 11:54] LABS: CALCIUM 8.3 mg/dL (8.5-10.1); CREATININE 0.9 mg/dL (0.6-1.3); POTASSIUM 3.4 mmol/L (3.5-5.1)
[2021-03-29 12:00] VITALS: BP 161/63
[2021-03-29] MEDS ORDERED: VANCOCIN 125 M125 M1 PO (12:43)
[2021-03-29 13:28] VITALS: BP 161/63
--- NOTE | 2021-03-29 14:30 | NUR ---
Reviewed discharge teaching with patient and daughter; verbalized understanding. Telemetry dc'd. Discharged from unit per WC.
== END 2021-03-29 14:30 | disposition home health service (06) | DRG 371 ==
LOC: M.ERS 20:16 → M.TBA-ER 23:51 → M.2W 03-27 17:45
PROVIDERS: Family Medicine; Personal Emergency Response Attendant; ADMIT Internal Medicine; ATTEND Internal Medicine
DX: A04.72 Enterocolitis due to Clostridium difficile, not specified as recurrent (principal); G92 Toxic encephalopathy; E87.2 Acidosis; J44.9 Chronic obstructive pulmonary disease, unspecified; I10 Essential (primary) hypertension; D72.829 Elevated white blood cell count, unspecified; T50.995A Adverse effect of other drugs, medicaments and biological substances, initial encounter; Z20.822 Contact with and (suspected) exposure to COVID-19; Z86.73 Personal history of transient ischemic attack (TIA), and cerebral infarction without residual deficits; Z90.49 Acquired absence of other specified parts of digestive tract; Z90.710 Acquired absence of both cervix and uterus; Z79.899 Other long term (current) drug therapy; Z87.891 Personal history of nicotine dependence